=== PATIENT | female | born 1955 | race Caucasian/White ===

== ENCOUNTER 2023-08-06 13:11 | Outpatient (AMB) | payer MEDICARE, SELFPAY ==
--- NOTE | 2023-08-06 12:33 | A.OFFPC_ITS ---
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 Accompanied by: Self / Same As Patient Allergies bee venom protein (honey bee) Allergy (Severe, Verified 08/06/23 13:26) Anaphylaxis piroxicam Adverse Reaction (Unknown, Verified 08/06/23 13:26) Itching Medication List - Last Reconciled 08/06/23 by Marie Zapata MD apixaban (Eliquis) 5 mg PO BID celecoxib 200 mg PO DAILY epinephrine mL IM lisinopril 20 mg PO DAILY loratadine 10 mg PO DAILY metoprolol succinate ER 25 mg PO DAILY Tobacco use date assessed: 08/06/23 Fall risk assessment: No Falls in past year Last assessed Fall Risk: 08/06/23 Dental Screening Dental Screen Date: 08/06/23 Did you have a dental visit in the last 12 months?: No Did you have a dental problem in the last 6 months where you did not have access to dental care?: No Was dental information given to patient?: Patient declined (False teeth) HPI HPI Comments History of Present Illness Details This is a 67 year old female with a past medical history of hypertension, atrial fibrillation, arthritis, bee allergy presenting for follow up CV: On metoprolol, lisinopril, eliquis. Has seen cardiology. Endorsed lightheadedness/dizziness-she underwent stress testing, loop monitor. sinus with pvcs and occasional atrial fibrillation. Msk: Stable on celebrex 200mg daily Colonoscopy 2018-10 year repeat recommended Mammo 02/23/2023-[facility] Medical History (Updated 08/06/23 @ 13:59 by Marie Zapata MD) Paroxysmal atrial fibrillation Hypertension Osteoarthritis Hyperlipidemia Severe obesity (BMI 35.0-39.9) with comorbidity Surgical History (Updated 08/06/23 @ 13:43 by Kat Haney CMA) History of cholecystectomy History of hysterectomy History of knee replacement procedure of right knee History of left knee replacement History of colonoscopy Social History (Updated 08/06/23 @ 13:25 by [facility]aney [facility] Household Members: None Housing: Apartment Are you a primary acute care assistant to a significant other at home: No Do you presently have visiting nurse or other home services: No 75 years or older and lives alone: No Alcohol intake: current Alcohol intake frequency: holidays/special occasions only Patient Tobacco Use Status: Former Tobacco user Tobacco use type: Cigarette Cigarette Packs Per Day: 0.5 Years Smoked: 20-25 e-Cigarette/Vaping Use: Never Used service: No Current occupational status: disabled Current occupation: [employer] Current occupational exposures/hazards: No Cognitive needs: No Hearing needs: No Vision needs: No Questionnaire PHQ-9 Over the last 2 weeks, how often have you been bothered by any of the following problems? 1. Little interest or pleasure in doing things: not at all 2. Feeling down, depressed, or hopeless: not at all 3. Trouble falling or staying asleep, or sleeping too much: not at all 4. Feeling tired or having little energy: not at all 5. Poor appetite or overeating: not at all 6. Feeling bad about yourself - or that you are a failure or have let yourself or your family down: not at all 7. Trouble concentrating on things, such as reading the newspaper or watching television: not at all 8. Moving or speaking so slowly that other people could have noticed. Or the opposite - being so fidgety or restless that you have been moving around a lot more than usual: not at all 9. Thoughts that you would be better off or of hurting yourself in some way: not at all Total score: 0 Depression Screening Interpretation: Negative Depression Screening Done: Yes 40025 - PHQ-9 Billing: Yes Source: Developed by Drs. Hubert Song, Zo Da Silva, Adrian Andrade and colleagues, with an educational sury from [employer]. Thrive Questionnaire Date Thrive assessed: 08/06/23 I am a: Patient What is your living situation today?: I have a steady place to live Within the past 12 months, did the food you bought not last and you didn't have the money to get more?: Never true Within the past 12 months, did you worry whether your food would run out before you got money to buy more?: Never true Do you have trouble paying for medicines?: No Do you have trouble getting transportation to medical appointments?: No Do you have trouble paying your heating and electricity bill?: No Do you have trouble taking care of your child, family member or friend?: No Do you have trouble with day-to-day activities such as bathing, preparing meals, shopping, managing finances, etc.?: No Are you currently unemployed and looking for a job?: No Are you interested in more education?: No Please select the resources that you would like help with: None Currently or been in a relationship where the following occur: no concerns reported THRIVE Score: 0 AUDIT C Alcohol Use Questionnaire (AUDIT-C) 1. How often do you have a drink containing alcohol?: Monthly or less 2. How many drinks containing alcohol do you have on a typical day when you are drinking?: 1 or 2 3. How often do you have six or more drinks on one occasion?: Never Total Score: 1 HALINA-7 AMB Questionnaire HALINA-7 Date HALINA - 7 assessed: 08/06/23 Feeling nervous, anxious, or on edge: 0 = Not at all Not being able to stop or control worryin = Not at all Worrying too much about different things: 0 = Not at all Trouble relaxin = Not at all Being so restless that it is hard to sit still: 0 = Not at all Becoming easily annoyed or irritable: 0 = Not at all Feeling afraid as if something awful might happen: 0 = Not at all Total HALINA-7 score (0-4 normal; 5-9 mild; 10-14 moderate; 15-21 severe): 0 Source: Developed by Drs. Hubert Song, Zo Da Silva, Adrian Andrade and colleagues, with an educational sury from [employer]. HALINA-7 Assessment Billing HALINA-7 Assessment Tool: HALINA-7 Assessment 76509 Review of Systems Const Details: ROS CONSTITUTIONAL: Denies weight loss, fever and chills. HEENT: Denies changes in vision and hearing. RESPIRATORY: Denies SOB and couh.? CV: Denies palpitations and CP GI: Denies abdominal pain, nausea, vomiting and diarrhea. : Denies dysuria and urinary frequency. MSK: Denies myalgia and joint pain. SKIN: Denies rash and pruritus. NEUROLOGICAL: Denies headache and syncope. PSYCHIATRIC: Denies recent changes in mood. Denies anxiety and depression. Physical exam (Primary Care) Vital Signs: Last Vital Signs Pulse 68 08/06/23 13:17 Resp 12 08/06/23 13:17 BP 148/80 H 08/06/23 13:17 Pulse Ox 98 08/06/23 13:17 Oxygen Delivery Method Room Air 08/06/23 13:17 BMI result Body Mass Index 40.4 Tobacco/Smoking Status: Tobacco use Status Tobacco use date assessed 08/06/23 08/06/23 13:32 Patient Tobacco Use Status Former Tobacco user 08/06/23 13:32 Tobacco use type Cigarette 08/06/23 13:32 e-Cigarette/Vaping Use Never Used 08/06/23 13:32 PHQ-9: PHQ-9 Score PHQ-9: Total score 0 08/06/23 13:37 Depression Screening Interpretation: Negative Thrive Assessment: Date of Thrive Assessment Date Thrive assessed 08/06/23 08/06/23 13:32 Currently or been in a relationship where the following occur: no concerns reported Const Other: PHYSICAL EXAM: GENERAL: Alert and oriented x 3. No acute distress. Well-nourished. EYES: EOMI. Anicteric. HENT: Moist mucous membranes. No scleral icterus. No cervical lymphadenopathy. LUNGS: Clear to auscultation bilaterally. No accessory muscle use. CARDIOVASCULAR: Regular rate and rhythm. No murmur. No JVD. ABDOMEN: Soft, non-tender and non-distended. No palpable masses. EXTREMITIES: No edema. Non-tender.?SKIN: No rashes or lesions. Warm. NEUROLOGIC: No focal neurological deficits. CN II-XII grossly intact, but not individually tested. PSYCHIATRIC: Cooperative. Appropriate mood and affect. Assessment and Plan Assessment & Plan (1) Paroxysmal atrial fibrillation: Comment: Sinus today. Paroxysmal. Rate controlled on BB. Continue eliquis Code(s): I48.0 - Paroxysmal atrial fibrillation (2) Hypertension: Comment: Controlled on current medications Code(s): I10 - Essential (primary) hypertension Qualifiers: Hypertension type: primary hypertension Qualified Code(s): I10 - Essential (primary) hypertension (3) Osteoarthritis: Comment: stable on celebrex. Aware of risk of GIB Code(s): M19.90 - Unspecified osteoarthritis, unspecified site Qualifiers: Osteoarthritis location: multiple joints Osteoarthritis type: primary Qualified Code(s): M15.9 - Polyosteoarthritis, unspecified (4) Hyperlipidemia: Code(s): E78.5 - Hyperlipidemia, unspecified Qualifiers: Hyperlipidemia type: mixed hyperlipidemia Qualified Code(s): E78.2 - Mixed hyperlipidemia (5) Severe obesity (BMI 35.0-39.9) with comorbidity: Comment: Discussed portion control/decreasing calories and exercising for at least 30 min five times per week Code(s): E66.01 - Morbid (severe) obesity due to excess calories (6) Follow-up exam: Code(s): Z09 - Encounter for follow-up examination after completed treatment for conditions other than malignant neoplasm Orders: Orders Comprehensive Met. Panel Today E78.5 - Hyperlipidemia, unspecified, I10 - Essential (primary) hypertension, I48.0 - Paroxysmal atrial fibrillation, M19.90 - Unspecified osteoarthritis, unspecified site Lipid Panel Today E78.5 - Hyperlipidemia, unspecified, I10 - Essential (primary) hypertension, I48.0 - Paroxysmal atrial fibrillation, M19.90 - Unspecified osteoarthritis, unspecified site Complete Blood Count Auto Diff Today E78.5 - Hyperlipidemia, unspecified, I10 - Essential (primary) hypertension, I48.0 - Paroxysmal atrial fibrillation TSH reflex Free T4 Today R94.6 - Abnormal results of thyroid function studies Medications: New apixaban (Eliquis) 5 mg PO BID 90 tabs 3RF celecoxib 200 mg PO DAILY 90 caps 3RF lisinopril 20 mg PO DAILY 90 days 90 tabs 3RF metoprolol succinate ER 25 mg PO DAILY 90 days 90 tabs 3RF Coding Level of Care Code Est Pt Level 5 (45472) Diagnoses Paroxysmal atrial fibrillation I48.0 Primary hypertension I10 Hypertension type: primary hypertension Primary osteoarthritis involving multiple joints M15.9 Osteoarthritis location: multiple joints Osteoarthritis type: primary Mixed hyperlipidemia E78.2 Hyperlipidemia type: mixed hyperlipidemia Severe obesity (BMI 35.0-39.9) with comorbidity E66.01 Follow-up exam Z09 Additional Codes HALINA-7 Assessment Billing - HALINA-7 Assessment Tool: HALINA-7 Assessment 08248 ([id number]) Time Spent (min) 48
[2023-08-06 13:17] VITALS: BP 148/80; PULSE 68; RESP 12; O2SAT 98; BMI 40.4
[2023-08-06 13:56] VITALS: BP 134/82
== END 2023-08-06 13:58 | disposition home or self-care (01) ==
PROVIDERS: PCP Internal Medicine; Visit Provider Internal Medicine
DX: I48.0 Paroxysmal atrial fibrillation (principal); E66.01 Morbid (severe) obesity due to excess calories; Z68.41 Body mass index [BMI] 40.0-44.9, adult; I10 Essential (primary) hypertension; Z09 Encounter for follow-up examination after completed treatment for conditions other than malignant neoplasm; M15.9 Polyosteoarthritis, unspecified; E78.2 Mixed hyperlipidemia
CPT/HCPCS: 99215

== ENCOUNTER 2023-08-07 07:39 | Outpatient (REF) | payer MEDICARE, SELFPAY ==
[2023-08-07 11:42] LABS: MANUAL DIFF FLAG NO
[2023-08-07 11:57] LABS: Basophils Percent Auto 0.3 % (0-2); Eosinophils Absolute Auto 0.1 X10*3/uL (0.0-0.4); Eosinophils Percent Auto 0.9 % (0-4); Hematocrit 42.6 % (37.0-47.0); Hemoglobin 13.4 g/dl (12.0-16.0); Imm Gran Abs Auto 0.01 X10*3/uL (0.00-0.03); Imm Gran Pct Auto 0.2 % (0.0-0.4); Lymphocytes Percent Auto 51.5 % (20-40); Mean Corpuscular HGB Conc 31.5 g/dl (31.0-35.0); Mean Corpuscular Hemoglobin 30.5 pg (27.0-33.0); Mean Platelet Volume 12.1 fL (9.4-12.3); Monocytes Absolute Auto 0.5 X10*3/uL (0.1-1.2); Monocytes Percent Auto 8.1 % (2-11); Neutrophils Absolute Auto 2.3 x10*3/uL (2.0-8.3); Platelet Count 198 X10*3/uL (160-400); Red Blood Count 4.39 X10*6/uL (4.20-5.50); Red Cell Distribution Width 12.9 % (11.0-16.0); White Blood Count 5.8 X10*3/uL (4.8-10.8)
[2023-08-07 12:36] LABS: Alanine Aminotransferase 18 U/L (0-31); Albumin Level 4.3 g/dL (3.5-5.0); Alkaline Phosphatase 119 U/L (39-117); Anion Gap 13 (12-20); Aspartate Amino Transferase 23 U/L (5-31); Bilirubin Total 1.2 mg/dL (0.0-1.0); Blood Urea Nitrogen 18 mg/dL (9-16); Calcium 10.4 mg/dL (8.4-10.2); Carbon Dioxide 29 mmol/L (22-29); Chloride 105 mmol/L (96-108); Cholesterol 202 mg/dL (<200); Estimated Glomerular Filt Rate > 60; Glucose Random 104 mg/dL (60-115); HDL Cholesterol 82 mg/dL (>40); LDL Cholesterol Calculated 102 mg/dL (<100); Potassium 3.9 mmol/L (3.3-5.1); Sodium 143 mmol/L (135-145); Total Protein 7.4 g/dL (6.5-8.0); Triglycerides 91 mg/dL (<150)
== END 2023-08-07 07:40 | disposition home or self-care (01) ==
LOC: HO.WFDLDS 07:39
PROVIDERS: Visit Provider Internal Medicine
DX: E78.5 Hyperlipidemia, unspecified (principal); I10 Essential (primary) hypertension; I48.0 Paroxysmal atrial fibrillation; R94.6 Abnormal results of thyroid function studies; M19.90 Unspecified osteoarthritis, unspecified site
CPT/HCPCS: 36415; 80053; 80061; 84443; 85025

== ENCOUNTER 2024-02-02 10:15 | Outpatient (AMB) | payer MEDICARE, SELFPAY ==
--- NOTE | 2024-02-02 10:31 | A.OFFPC_ITS ---
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 Patient tells me she has a health care proxy Memory 3/3 recall Independent in all ADLS except driving. She never got her license No recent falls. Not scared of falling. Not using alcohol HRA reviewed. No issues identified Care team reviewed: She is no longer seeing cardiology. She is UTD with dentist CV: On metoprolol, lisinopril, eliquis. Has seen cardiology. Endorsed lightheadedness/dizziness-she underwent stress testing, loop monitor. sinus with pvcs and occasional atrial fibrillation. Msk: Stable on celebrex 200mg daily Colonoscopy 2018-10 year repeat recommended Mammo 02/23/2023-[facility] CONSTITUTIONAL: Denies weight loss, fever and chills. HEENT: Denies changes in vision and hearing. RESPIRATORY: Denies SOB and cough. CV: Denies palpitations and CP GI: Denies abdominal pain, nausea, vomiting and diarrhea. : Denies dysuria and urinary frequency. MSK: Denies new myalgia and joint pain. SKIN: Denies rash and pruritus. NEUROLOGICAL: Denies headache PSYCHIATRIC: Denies recent changes in mood. PHYSICAL EXAM: GENERAL: Alert and oriented x 3. NAD EYES: EOMI. Anicteric. HENT: Moist mucous membranes. No scleral icterus. No cervical lymphadenopathy. LUNGS: Clear to auscultation bilaterally. CARDIOVASCULAR: Regular rate and rhythm ABDOMEN: Soft, non-tender +bs EXTREMITIES: No edema. Non-tender. SKIN: No rashes or lesions. Warm. NEUROLOGIC: No focal neurological deficits. CN II-XII grossly intact PSYCHIATRIC: Cooperative. Appropriate mood and affect [facility] Medical History Paroxysmal atrial fibrillation Hypertension Osteoarthritis Hyperlipidemia Severe obesity (BMI 35.0-39.9) with comorbidity Surgical History History of cholecystectomy History of hysterectomy History of knee replacement procedure of right knee History of left knee replacement History of colonoscopy Social History Household Members: None Housing: Apartment Are you a primary manager care management to a significant other at home: No Do you presently have visiting nurse or other home services: No 75 years or older and lives alone: No Alcohol intake: current Alcohol intake frequency: holidays/special occasions only Patient Tobacco Use Status: Former Tobacco user Tobacco use type: Cigarette Cigarette Packs Per Day: 0.5 Years Smoked: 20-25 e-Cigarette/Vaping Use: Never Used service: No Current occupational status: disabled Current occupation: [employer]SI Current occupational exposures/hazards: No Cognitive needs: No Hearing needs: No Vision needs: No Questionnaire PHQ-9 Over the last 2 weeks, how often have you been bothered by any of the following problems? 1. Little interest or pleasure in doing things: not at all 2. Feeling down, depressed, or hopeless: not at all 3. Trouble falling or staying asleep, or sleeping too much: not at all 4. Feeling tired or having little energy: not at all 5. Poor appetite or overeating: not at all 6. Feeling bad about yourself - or that you are a failure or have let yourself or your family down: not at all 7. Trouble concentrating on things, such as reading the newspaper or watching television: not at all 8. Moving or speaking so slowly that other people could have noticed. Or the opposite - being so fidgety or restless that you have been moving around a lot more than usual: not at all 9. Thoughts that you would be better off or of hurting yourself in some way: not at all Total score: 0 Depression Screening Interpretation: Negative (neg) Depression Screening Done: Yes 65033 - PHQ-9 Billing: Yes Source: Developed by Drs. Hubert Song, Adrian Pino and colleagues, with an educational sury from [email or web address] Thrive Questionnaire Date Thrive assessed: 02/02/24 I am a: Patient What is your living situation today?: I have a steady place to live Within the past 12 months, did the food you bought not last and you didn't have the money to get more?: Never true Within the past 12 months, did you worry whether your food would run out before you got money to buy more?: Never true Do you have trouble paying for medicines?: No Do you have trouble getting transportation to medical appointments?: No Do you have trouble paying your heating and electricity bill?: No Do you have trouble taking care of your child, family member or friend?: No Do you have trouble with day-to-day activities such as bathing, preparing meals, shopping, managing finances, etc.?: No Are you currently unemployed and looking for a job?: No Are you interested in more education?: No Please select the resources that you would like help with: None Currently or been in a relationship where the following occur: No concerns reported THRIVE Score: 0 AUDIT C Alcohol Use Questionnaire (AUDIT-C) 1. How often do you have a drink containing alcohol?: Monthly or less 2. How many drinks containing alcohol do you have on a typical day when you are drinking?: 1 or 2 3. How often do you have six or more drinks on one occasion?: Less than monthly Total Score: 2 HALINA-7 AMB Questionnaire HALINA-7 Date HALINA - 7 assessed: 02/02/24 Feeling nervous, anxious, or on edge: 0 = Not at all Not being able to stop or control worryin = Not at all Worrying too much about different things: 0 = Not at all Trouble relaxin = Not at all Being so restless that it is hard to sit still: 0 = Not at all Becoming easily annoyed or irritable: 0 = Not at all Feeling afraid as if something awful might happen: 0 = Not at all Total HALINA-7 score (0-4 normal; 5-9 mild; 10-14 moderate; 15-21 severe): 0 Source: Developed by Zo Pantoja Avinash, Adrian Andrade and colleagues, with an educational sury from [email or web address] HALINA-7 Assessment Billing HALINA-7 Assessment Tool: HALINA-7 Assessment 40983 Physical exam (Primary Care) Vital Signs: Last Vital Signs Pulse 66 02/02/24 10:33 BP 118/74 02/02/24 10:33 Pulse Ox 97 02/02/24 10:33 Oxygen Delivery Method Room Air 02/02/24 10:33 BMI result Body Mass Index 41.3 Tobacco/Smoking Status: Tobacco use Status Tobacco use date assessed 08/06/23 02/02/24 10:38 Patient Tobacco Use Status Former Tobacco user 02/02/24 10:38 Tobacco use type Cigarette 02/02/24 10:38 e-Cigarette/Vaping Use Never Used 02/02/24 10:38 PHQ-9: PHQ-9 Score PHQ-9: Total score 0 02/02/24 11:03 Depression Screening Interpretation: Negative (neg) Thrive Assessment: Date of Thrive Assessment Date Thrive assessed 02/02/24 02/02/24 10:41 Currently or been in a relationship where the following occur: No concerns reported Coding Level of Care Code Est Pt Level 3 (81810) Diagnoses Encounter for annual wellness visit (AWV) in Medicare patient Z00.00 Paroxysmal atrial fibrillation I48.0 Severe obesity (BMI 35.0-39.9) with comorbidity E66.01 Additional Codes HALINA-7 Assessment Billing - HALINA-7 Assessment Tool: HALINA-7 Assessment 70409 ([id number]) Comment [id number] Assessment & Plan Assessment & Plan (1) Encounter for annual wellness visit (AWV) in Medicare patient: Code(s): Z00.00 - Encounter for general adult medical examination without abnormal findings Category: Medical Plan: see HPI (2) Paroxysmal atrial fibrillation: Code(s): I48.0 - Paroxysmal atrial fibrillation Category: Medical Plan: Sinus today. Paroxysmal. Rate controlled on BB. Continue eliquis (3) Severe obesity (BMI 35.0-39.9) with comorbidity: Code(s): E66.01 - Morbid (severe) obesity due to excess calories Category: Medical Plan: Discussed portion control/decreasing calories and exercising for at least 30 min five times per week Orders: Orders Comprehensive Met. Panel 6 Months E78.2 - Mixed hyperlipidemia, I10 - Essential (primary) hypertension Lipid Panel 6 Months E78.2 - Mixed hyperlipidemia, I10 - Essential (primary) hypertension Hemoglobin A1c 6 Months E78.2 - Mixed hyperlipidemia, I10 - Essential (primary) hypertension MM screening mammo BI Today Z12.31 - Encounter for screening mammogram for malignant neoplasm of breast UA CC w/rflx Micro + Cult Today I10 - Essential (primary) hypertension Medications: New furosemide 20 mg PO DAILY 90 tabs 3RF lisinopril 5 mg PO DAILY 90 tabs 3RF Discontinued lisinopril Discontinued Reason: Doctor's Order 20 mg PO DAILY 90 days 90 tabs 3RF
[2024-02-02 10:33] VITALS: BP 118/74; PULSE 66; O2SAT 97; BMI 41.3
== END 2024-02-02 11:12 | disposition home or self-care (01) ==
PROVIDERS: PCP Internal Medicine; Visit Provider Internal Medicine
DX: Z00.00 Encounter for general adult medical examination without abnormal findings (principal); I48.0 Paroxysmal atrial fibrillation; E66.01 Morbid (severe) obesity due to excess calories; Z68.41 Body mass index [BMI] 40.0-44.9, adult

== ENCOUNTER → 2024-02-02 10:15 | Outpatient (BNVA) | payer MEDICARE, SELFPAY | PROVIDERS: PCP Internal Medicine; Visit Provider Internal Medicine ==

== ENCOUNTER 2024-02-02 10:20 | Outpatient (REF) | payer MEDICARE, SELFPAY ==
[2024-02-02 14:49] LABS: Baso%MD 0.3 %; Hematocrit 37.9 % (37.0-47.0); Hemoglobin 12.7 g/dl (12.0-16.0); IG%MD 0.1 %; Lymph%MD 38.1 %; Mean Corpuscular HGB Conc 33.5 g/dl (31.0-35.0); Mean Corpuscular Hemoglobin 31.7 pg (27.0-33.0); Mean Corpuscular Volume 94.5 fL (80.0-98.0); Mean Platelet Volume 12.2 fL (9.4-12.3); Mono%MD 7.7 %; Neut%MD 52.8 %; Platelet Count 192 X10*3/uL (160-400); Red Blood Count 4.01 X10*6/uL (4.20-5.50); Red Cell Distribution Width 12.8 % (11.0-16.0); White Blood Count 7.1 X10*3/uL (4.8-10.8)
[2024-02-02 22:23] LABS: Lymphocytes Absolute Manual 2.4 X10*3/uL (1.2-4.9); Lymphocytes Percent Manual 34 % (20-40); Monocytes Absolute Manual 0.5 X10*3/uL (0.1-1.2); Monocytes Percent Manual 7 % (2-11); Neutrophils Percent Manual 59 % (45-73)
[2024-02-02 22:27] LABS: Platelet Estimate NORMAL (NORMAL); Platelet Morphology Comment NORMAL; RBC Morphology NORMAL
[2024-02-02 22:30] LABS: Band Neutrophils Percent 0 % (3-5); Neutrophils Absolute Manual 4.2 X10*3/uL (2.0-8.3)
== END 2024-02-02 10:21 | disposition home or self-care (01) ==
LOC: HO.WFDLDS 10:20
PROVIDERS: Visit Provider Internal Medicine
DX: Z00.00 Encounter for general adult medical examination without abnormal findings (principal); I48.0 Paroxysmal atrial fibrillation; E66.01 Morbid (severe) obesity due to excess calories; Z68.41 Body mass index [BMI] 40.0-44.9, adult; E78.2 Mixed hyperlipidemia; I10 Essential (primary) hypertension; Z79.01 Long term (current) use of anticoagulants
CPT/HCPCS: 85007; 85027; 96127; 99212

== ENCOUNTER 2024-07-29 10:00 | Outpatient (REF) | payer MEDICARE, SELFPAY ==
[2024-07-29 11:59] LABS: Estimated Average Glucose 111 mg/dL; Hemoglobin A1C 136.7956 umol/L; Hemoglobin A1c % 5.5 % (<6.0); Total Hemoglobin (HGBA1C) 3697.4269 umol/L
[2024-07-29 12:01] LABS: Appearance Urine Cloudy; Color Urine Dark Yellow; Glucose Urine UA Negative (Negative); Leukocyte Esterase Urine Moderate (2+) (Negative); Nitrite Urine Negative (Negative); PH 5.5 (5.0-9.0); Specific Gravity - Urine 1.025 (1.005-1.025); UMIC TRIGGER UACC YES; Urine Blood Trace (Negative); Urine Ketones Trace mg/dL (Negative); Urine Protein Negative (Neg-Trace)
[2024-07-29 12:12] LABS: Alanine Aminotransferase 25 U/L (0-31); Albumin Level 4.3 g/dL (3.5-5.0); Alkaline Phosphatase 83 U/L (39-117); Anion Gap 13 (12-20); Aspartate Amino Transferase 35 U/L (5-31); Bilirubin Total 1.2 mg/dL (0.0-1.0); Blood Urea Nitrogen 11 mg/dL (9-16); Calcium 10.2 mg/dL (8.4-10.2); Carbon Dioxide 30 mmol/L (22-29); Chloride 104 mmol/L (96-108); Cholesterol 187 mg/dL (<200); Estimated Glomerular Filt Rate > 60; Glucose Random 108 mg/dL (60-115); HDL Cholesterol 76 mg/dL (>40); LDL Cholesterol Calculated 82 mg/dL (<100); Potassium 4.2 mmol/L (3.3-5.1); Sodium 143 mmol/L (135-145); Total Protein 7.4 g/dL (6.5-8.0); Triglycerides 149 mg/dL (<150)
[2024-07-29 12:38] LABS: Bacteria Urine 4+ (None Seen); Other Crystals Urine Present; RBC Urine 0-2 /HPF (0-2); Squamous Epithelial Cell Urine >20 /HPF (0-2); UACC Culture Trigger YES
== END 2024-07-29 10:01 | disposition home or self-care (01) ==
LOC: HO.WFDLDS 10:00
PROVIDERS: Visit Provider Internal Medicine
DX: I10 Essential (primary) hypertension (principal); E78.2 Mixed hyperlipidemia; Z13.1 Encounter for screening for diabetes mellitus; R82.90 Unspecified abnormal findings in urine
CPT/HCPCS: 36415; 80053; 80061; 81001; 81003; 83036; 87086

== ENCOUNTER 2024-08-15 08:47 | Outpatient (AMB) | payer MEDICARE, SELFPAY ==
--- NOTE | 2024-08-15 09:13 | MHC.PC.OV ---
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: No Allergies bee venom protein (honey bee) Allergy (Severe, Verified 08/15/24 09:17) Anaphylaxis piroxicam Adverse Reaction (Unknown, Verified 08/15/24 09:17) Itching Tobacco use date assessed: 08/15/24 Fall risk assessment: No Falls in past year Last assessed Fall Risk: 08/15/24 Dental Screening Dental Screen Date: 08/15/24 Did you have a dental visit in the last 12 months?: No Did you have a dental problem in the last 6 months where you did not have access to dental care?: No Was dental information given to patient?: Patient declined (Has false teeth) HPI HPI Comments History of Present Illness Details This is a 67 year old female with a past medical history of hypertension, atrial fibrillation, arthritis, bee allergy presenting for AWV CV: On metoprolol, lisinopril, eliquis, furosemide. Has seen cardiology, no longer following. Endorsed lightheadedness/dizziness-she underwent stress testing, loop monitor. sinus with pvcs and occasional atrial fibrillation. MSK: Stable on celebrex 200mg daily. She cut out sugar/carbs which has helped her joints. She has lost 3 pounds but despite walking and changing diet she is having difficulty losing any more weight. Colonoscopy 2019-10 year repeat recommended Mammo 02/23/2023-[facility], says UTD 2023 ROS CONSTITUTIONAL: Denies weight loss, fever and chills. HEENT: Denies changes in vision and hearing. RESPIRATORY: Denies SOB and cough. CV: Denies palpitations and CP GI: Denies abdominal pain, nausea, vomiting and diarrhea. : Denies dysuria and urinary frequency. MSK: Denies new myalgia and joint pain. SKIN: Denies rash and pruritus. NEUROLOGICAL: Denies headache PSYCHIATRIC: Denies recent changes in mood. PHYSICAL EXAM: GENERAL: Alert and oriented x 3. NAD EYES: EOMI. Anicteric. HENT: Moist mucous membranes. No scleral icterus. No cervical lymphadenopathy. LUNGS: Clear to auscultation bilaterally. CARDIOVASCULAR: Regular rate and rhythm ABDOMEN: Soft, non-tender +bs EXTREMITIES: No edema. Non-tender. SKIN: No rashes or lesions. Warm. NEUROLOGIC: No focal neurological deficits. CN II-XII grossly intact PSYCHIATRIC: Cooperative. Appropriate mood and affect [facility] Medical History Paroxysmal atrial fibrillation Hypertension Osteoarthritis Hyperlipidemia Severe obesity (BMI 35.0-39.9) with comorbidity Surgical History History of cholecystectomy History of hysterectomy History of knee replacement procedure of right knee History of left knee replacement History of colonoscopy Social History Household Members: None Housing: Apartment Are you a primary care director rn to a significant other at home: No Do you presently have visiting nurse or other home services: No 75 years or older and lives alone: No Alcohol intake: current Alcohol intake frequency: holidays/special occasions only Patient Tobacco Use Status: Former Tobacco user Tobacco use type: Cigarette Cigarette Packs Per Day: 0.5 Years Smoked: 20-25 e-Cigarette/Vaping Use: Never Used service: No Current occupational status: disabled Current occupation: [employer] Current occupational exposures/hazards: No Cognitive needs: No Hearing needs: No Vision needs: No Questionnaire PHQ-9 Over the last 2 weeks, how often have you been bothered by any of the following problems? 1. Little interest or pleasure in doing things: not at all 2. Feeling down, depressed, or hopeless: not at all 3. Trouble falling or staying asleep, or sleeping too much: not at all 4. Feeling tired or having little energy: not at all 5. Poor appetite or overeating: not at all 6. Feeling bad about yourself - or that you are a failure or have let yourself or your family down: not at all 7. Trouble concentrating on things, such as reading the newspaper or watching television: not at all 8. Moving or speaking so slowly that other people could have noticed. Or the opposite - being so fidgety or restless that you have been moving around a lot more than usual: not at all 9. Thoughts that you would be better off or of hurting yourself in some way: not at all Total score: 0 Depression Screening Interpretation: Negative Depression Screening Done: Yes 78281 - PHQ-9 Billing: Yes Source: Developed by Drs. Hubert Song, Adrian Pino and colleagues, with an educational sury from [employer]. Thrive Questionnaire Date Thrive assessed: 08/15/24 I am a: Patient What is your living situation today?: I have a steady place to live Within the past 12 months, did the food you bought not last and you didn't have the money to get more?: Never true Within the past 12 months, did you worry whether your food would run out before you got money to buy more?: Never true Do you have trouble paying for medicines?: No Do you have trouble getting transportation to medical appointments?: No Do you have trouble paying your heating and electricity bill?: No Do you have trouble taking care of your child, family member or friend?: No Do you have trouble with day-to-day activities such as bathing, preparing meals, shopping, managing finances, etc.?: No Are you currently unemployed and looking for a job?: No Are you interested in more education?: No Please select the resources that you would like help with: None Currently or been in a relationship where the following occur: No concerns reported THRIVE Score: 0 HALINA-7 AMB Questionnaire HALINA-7 Date HALINA - 7 assessed: 08/15/24 Feeling nervous, anxious, or on edge: 0 = Not at all Not being able to stop or control worryin = Not at all Worrying too much about different things: 0 = Not at all Trouble relaxin = Not at all Being so restless that it is hard to sit still: 0 = Not at all Becoming easily annoyed or irritable: 0 = Not at all Feeling afraid as if something awful might happen: 0 = Not at all Total HALINA-7 score (0-4 normal; 5-9 mild; 10-14 moderate; 15-21 severe): 0 Source: Developed by Drs. Hubert Song, Adrian Pino and colleagues, with an educational sury from [employer]. HALINA-7 Assessment Billing HALINA-7 Assessment Tool: HALINA-7 Assessment 27053 Physical exam (Primary Care) Vital Signs: Last Vital Signs Pulse 53 08/15/24 09:23 Resp 16 08/15/24 09:23 BP 136/88 08/15/24 09:23 Pulse Ox 98 08/15/24 09:23 Oxygen Delivery Method Room Air 08/15/24 09:23 BMI result Body Mass Index 40.8 Tobacco/Smoking Status: Tobacco use Status Tobacco use date assessed 08/15/24 08/15/24 09:19 Patient Tobacco Use Status Former Tobacco user 08/15/24 09:13 Tobacco use type Cigarette 08/15/24 09:13 e-Cigarette/Vaping Use Never Used 08/15/24 09:13 PHQ-9: PHQ-9 Score PHQ-9: Total score 0 08/15/24 10:35 Depression Screening Interpretation: Negative Thrive Assessment: Date of Thrive Assessment Date Thrive assessed 08/15/24 08/15/24 09:26 Currently or been in a relationship where the following occur: No concerns reported Coding Level of Care Code Est Pt Level 4 (00417) Complex EM visit Add On G2211 Diagnoses Class 3 severe obesity with serious comorbidity and body mass index (BMI) of 40.0 to 44.9 in adult, unspecified obesity type E66.813; E66.01; Z68.41 Obesity type: unspecified obesity type Obesity classification: adult class 3 (BMI >= 40) Serious obesity comorbidity presence: with serious comorbidity Body mass index: BMI 40.0-44.9 Paroxysmal atrial fibrillation I48.0 Primary osteoarthritis involving multiple joints M15.9 Osteoarthritis location: multiple joints Osteoarthritis type: primary Primary hypertension I10 Hypertension type: primary hypertension Additional Codes HALINA-7 Assessment Billing - HALINA-7 Assessment Tool: HALINA-7 Assessment [id number] ([id number]) PHQ-9 - 26236 - PHQ-9 Billing: Yes ([id number]) Assessment & Plan Assessment & Plan (1) Obesity: Code(s): E66.9 - Obesity, unspecified Category: Medical Qualifiers: Obesity type: unspecified obesity type Obesity classification: adult class 3 (BMI >= 40) Serious obesity comorbidity presence: with serious comorbidity Body mass index: BMI 40.0-44.9 Qualified Code(s): E66.813 - Obesity, class 3; E66.01 - Morbid (severe) obesity due to excess calories; Z68.41 - Body mass index [BMI] 40.0-44.9, adult (2) Paroxysmal atrial fibrillation: Code(s): I48.0 - Paroxysmal atrial fibrillation Category: Medical (3) Osteoarthritis: Comment: stable on celebrex. Aware of risk of GIB Code(s): M19.90 - Unspecified osteoarthritis, unspecified site Category: Medical Qualifiers: Osteoarthritis location: multiple joints Osteoarthritis type: primary Qualified Code(s): M15.9 - Polyosteoarthritis, unspecified (4) Hypertension: Comment: Controlled on current medications Code(s): I10 - Essential (primary) hypertension Category: Medical Qualifiers: Hypertension type: primary hypertension Qualified Code(s): I10 - Essential (primary) hypertension Plan Hypertension well controlled Obesity-minimal weight loss with dietary and lifestyle changes. GLP sent OA-stable Labs reviewed Orders: Orders Complete Blood Count Auto Diff Today E66.9 - Obesity, unspecified, E78.2 - Mixed hyperlipidemia, I10 - Essential (primary) hypertension, I48.0 - Paroxysmal atrial fibrillation, M15.9 - Polyosteoarthritis, unspecified Comprehensive Met. Panel Today E66.9 - Obesity, unspecified, E78.2 - Mixed hyperlipidemia, I10 - Essential (primary) hypertension, I48.0 - Paroxysmal atrial fibrillation, M15.9 - Polyosteoarthritis, unspecified TSH reflex Free T4 Today E66.9 - Obesity, unspecified, E78.2 - Mixed hyperlipidemia, I10 - Essential (primary) hypertension, I48.0 - Paroxysmal atrial fibrillation, M15.9 - Polyosteoarthritis, unspecified Lipid Panel Today E66.9 - Obesity, unspecified, E78.2 - Mixed hyperlipidemia, I10 - Essential (primary) hypertension, I48.0 - Paroxysmal atrial fibrillation, M15.9 - Polyosteoarthritis, unspecified Medications: New Rybelsus (semaglutide) 3 mg PO DAILY 30 days 30 tabs 0RF NS E66.9 - Obesity, unspecified, I10 - Essential (primary) hypertension epinephrine (EpiPen 2-Waldemar) 0.3 mg (0.3 mL) IM Q10M PRN 2 ea 3RF anaphylaxis loratadine (Allergy Relief (loratadine)) 10 mg PO DAILY 90 tabs 3RF Refilled lisinopril 5 mg PO DAILY 90 tabs 3RF furosemide 20 mg PO DAILY 90 tabs 3RF Eliquis (apixaban) 5 mg PO BID 180 tabs 3RF NS metoprolol succinate ER 25 mg PO DAILY 90 days 90 tabs 3RF celecoxib 200 mg PO DAILY 90 caps 3RF
[2024-08-15 09:23] VITALS: BP 136/88; PULSE 53; RESP 16; O2SAT 98; BMI 40.8
== END 2024-08-15 09:49 | disposition home or self-care (01) ==
LOC: HO.HMCFM 08:47
PROVIDERS: PCP Internal Medicine; Visit Provider Internal Medicine
DX: E66.813 Obesity, class 3 (principal); E66.01 Morbid (severe) obesity due to excess calories; Z68.41 Body mass index [BMI] 40.0-44.9, adult; I48.0 Paroxysmal atrial fibrillation; M15.9 Polyosteoarthritis, unspecified; I10 Essential (primary) hypertension

== ENCOUNTER → 2024-08-15 08:47 | Outpatient (BNVA) | payer MEDICARE, SELFPAY | PROVIDERS: PCP Internal Medicine; Visit Provider Internal Medicine | DX: I10 Essential (primary) hypertension (principal); I48.0 Paroxysmal atrial fibrillation; E66.813 Obesity, class 3; E66.01 Morbid (severe) obesity due to excess calories; M15.9 Polyosteoarthritis, unspecified; E78.2 Mixed hyperlipidemia; Z68.41 Body mass index [BMI] 40.0-44.9, adult | CPT/HCPCS: 96127; 99212 ==

== ENCOUNTER 2025-01-31 08:47 | Outpatient (REF) | payer MEDICARE, SELFPAY ==
[2025-01-31 11:27] LABS: MANUAL DIFF FLAG NO
[2025-01-31 11:39] LABS: Appearance Urine Clear; Glucose Urine UA Negative (Negative); PH 6.0 (5.0-9.0); Specific Gravity - Urine 1.015 (1.005-1.025); UMIC TRIGGER UACC YES
[2025-01-31 12:11] LABS: Hematocrit 43.1 % (37.0-47.0); Hemoglobin 14.3 g/dl (12.0-16.0); Imm Gran Abs Auto 0.01 X10*3/uL (0.00-0.03); Imm Gran Pct Auto 0.1 % (0.0-0.4); Lymphocytes Absolute Auto 3.2 X10*3/uL (1.2-4.9); Mean Corpuscular HGB Conc 33.2 g/dl (31.0-35.0); Mean Corpuscular Hemoglobin 31.6 pg (27.0-33.0); Mean Corpuscular Volume 95.4 fL (80.0-98.0); NRBC Abs Auto 0.000 X10*3/uL (0.0-0.012); NRBC Pct Auto 0.0 /100WBC (0.0-0.2); Platelet Count 189 X10*3/uL (160-400); Red Blood Count 4.52 X10*6/uL (4.20-5.50); White Blood Count 7.1 X10*3/uL (4.8-10.8)
[2025-01-31 12:30] LABS: Alanine Aminotransferase 19 U/L (0-31); Albumin Level 4.3 g/dL (3.5-5.0); Alkaline Phosphatase 64 U/L (39-117); Anion Gap 11 (12-20); Aspartate Amino Transferase 25 U/L (5-31); Blood Urea Nitrogen 14 mg/dL (9-16); Calcium 9.6 mg/dL (8.4-10.2); Carbon Dioxide 30 mmol/L (22-29); Chloride 104 mmol/L (96-108); Cholesterol 185 mg/dL (<200); Estimated Glomerular Filt Rate > 60; HDL Cholesterol 74 mg/dL (>40); Potassium 3.4 mmol/L (3.3-5.1); Sodium 142 mmol/L (135-145); Total Protein 7.2 g/dL (6.5-8.0); Triglycerides 126 mg/dL (<150)
== END 2025-01-31 08:48 | disposition home or self-care (01) ==
LOC: HO.WFDLDS 08:47
PROVIDERS: Visit Provider Internal Medicine
DX: E78.2 Mixed hyperlipidemia (principal); I10 Essential (primary) hypertension; M15.9 Polyosteoarthritis, unspecified; E66.9 Obesity, unspecified; I48.0 Paroxysmal atrial fibrillation
CPT/HCPCS: 36415; 80053; 80061; 81001; 84443; 85025

== ENCOUNTER 2025-02-06 09:01 | Outpatient (AMB) | payer MEDICARE, SELFPAY ==
--- NOTE | 2025-02-06 09:03 | A.OFFVIS_ITS ---
Intake Vital Signs 02/06/25 09:18 Height 5 ft 5 in Weight 242 lb BMI 40.3 BP 112/84 Blood Pressure Location Rt brachial Position Sitting Respiration 16 Pulse 68 Pulse Source Pulse Oximeter Temp 98.5 F Temp Source Oral Pulse Oximetry (%) 96 Oxygen Delivery Method Room Air Intake Visit Reasons: AWV Allergies bee venom protein (honey bee) Allergy (Severe, Verified 08/15/24 09:17) Anaphylaxis piroxicam Adverse Reaction (Unknown, Verified 08/15/24 09:17) Itching HPI HPI Comments History of Present Illness Details This is a 67 year old female with a past medical history of hypertension, atrial fibrillation, arthritis, bee allergy presenting for AWV CV: On metoprolol, lisinopril, eliquis, furosemide. Has seen cardiology in the past, no longer following. Previous stress testing-reassuring. loop monitor. sinus with pvcs and occasional atrial fibrillation-continues AC MSK: Stable on celebrex 200mg daily. She cut out sugar/carbs which has helped her joints. Impaired glucose with borderline prediabetic A1C Colonoscopy 2018-10 year repeat recommended Mammo 02/23/2023-[facility], says UTD 2023 Advance care planning (ACP)-Discussed. Patient tells me she has a health care proxy Memory 3/3 recall Independent in all ADLS except driving. She never got her license No recent falls. Not scared of falling. Not using alcohol HRA reviewed. No issues identified Care team reviewed: She is no longer seeing cardiology. She is UTD with dentist Patient got covid and flu shot last month (2024) ROS CONSTITUTIONAL: Denies weight loss, fever and chills. HEENT: Denies changes in vision and hearing. RESPIRATORY: Denies SOB and cough. CV: Denies palpitations and CP GI: Denies abdominal pain, nausea, vomiting and diarrhea. : Denies dysuria and urinary frequency. MSK: Denies new myalgia and joint pain. SKIN: Denies rash and pruritus. NEUROLOGICAL: Denies headache PSYCHIATRIC: Denies recent changes in mood. PHYSICAL EXAM: GENERAL: Alert and oriented x 3. NAD EYES: EOMI. Anicteric. HENT: Moist mucous membranes. No scleral icterus. No cervical lymphadenopathy. LUNGS: Clear to auscultation bilaterally. CARDIOVASCULAR: Regular rate and rhythm ABDOMEN: Soft, non-tender +bs EXTREMITIES: No edema. Non-tender. SKIN: No rashes or lesions. Warm. NEUROLOGIC: No focal neurological deficits. CN II-XII grossly intact PSYCHIATRIC: Cooperative. Appropriate mood and affect [facility] Medical History Paroxysmal atrial fibrillation Hypertension Osteoarthritis Hyperlipidemia Severe obesity (BMI 35.0-39.9) with comorbidity Surgical History History of cholecystectomy History of hysterectomy History of knee replacement procedure of right knee History of left knee replacement History of colonoscopy Social History Household Members: None Housing: Apartment Are you a primary residential caregiver to a significant other at home: No Do you presently have visiting nurse or other home services: No 75 years or older and lives alone: No Alcohol intake: current Alcohol intake frequency: holidays/special occasions only Patient Tobacco Use Status: Former Tobacco user Tobacco use type: Cigarette Cigarette Packs Per Day: 0.5 Years Smoked: 20-25 e-Cigarette/Vaping Use: Never Used service: No Current occupational status: disabled Current occupation: [employer] Current occupational exposures/hazards: No Cognitive needs: No Hearing needs: No Vision needs: No Questionnaire Medicare Wellness Checkup [age] 65-69 What gender do you identify with?: female During the past 4 weeks, has your physical & emotional health limited your social activities with family, friends, neighbors, or groups?: not at all During the past 4 weeks, how much bodily pain have you generally had?: very mild pain During the past 4 weeks, what was the hardest physical activity you could do for at least 2 minutes?: heavy Can you get to places out of walking distance without help? (For eg., can you travel alone on buses, taxis or drive your car?): Yes Can you go shopping for groceries or clothes without someone's help?: Yes Can you prepare your own meals?: Yes Can you do your housework without help?: Yes Because of any health problems, do you need the help of another person with your personal care needs such as eating, bathing, dressing or getting around the house?: No Can you handle your own money without help?: Yes During the past 4 weeks, how would you rate your health in general?: good During the past 4 weeks how have things been going for you?: very well; could hardly better Are you having difficulties driving your car?: not applicable, I don't use a car Do you always fasten your seat belt when you are in a car?: yes, usually During past 4 weeks, have you been bothered by the following: never: Falling or dizzy when standing up, Sexual problems?, Trouble eating well?, Teeth or denture problems?, Problems using the telephone? and Tiredness or fatigue? Have you fallen 2 or more times in the past year?: No Are you afraid of falling?: Yes Are you a smoker?: no (quit 6 years ago) During the past 4 weeks, how many drinks of wine, beer, or other alcoholic beverages did you have?: no alcohol at all Do you exercise for about 20 minutes 3 or more times a week?: yes, all the time Have you been given information to help with the following?: no: Hazards in your house that might hurt you? and no: Keeping track of your medications? How often do you have trouble taking medicines the way you have been told to take them?: I always take medicine as prescribed What is your race?: White Mini Mental State Exam (MMSE) Orientation What is the (year) (season) (date) (day) (month)?: year (2024), season (Fall), date (02/06/2025), day (Thursday) and month (January) Where are we (state) (county) (town or city) (hospital) (floor)?: state ([place]), county ([place]), town or city ([place]), hospital[place] and floor ([place]) Registration Name of 3 unrelated objects clearly and slowly, then ask patient to repeat all 3 of them. (1st repeat determines score. Make sure they can repeat all three): object 1 (Ball), object 2 (Flag) and object 3 (Tree) Attention & Calculation (CHOOSE ONE) Spell WORLD backwards (DLROW): 0 letters Recall Ask patient to repeat the 3 items from question #3.: object 1 (ball) and object 2 (flag) Language Show patient a wristwatch & ask what it is. Repeat for pencil.: pencil Ask the patient to repeat the phrase 'No ifs, ands, or buts' after you.: incorrect Print the sentence 'CLOSE YOUR EYES' on a piece. If patient actually closes eyes then score.: followed written direction Give patient a blank piece of paper & ask to write a sentence. Score if it contains a noun & verb.: sentence contains subject and verb Score Score: 18 Activity of Daily Living Bathing - sponge bath, tub bath or shower: receives no assistance (gets in/out by self, if usual bathing means Dressing - getting clothes from closets & drawers, including inner/outer garments & fasteners.: gets clothes & gets completely dressed without help Toileting - going to the 'toilet room' for urine/bowel elimination & cleaning self/arranging clothes: goes to toilet room, cleans self, arranges clothes without help Transfer: moves in & out of bed and chair without help (may use support object) Continence: controls urination/bowel movements completely by self Feeding: feeds self without help Total Score: 0 Information obtained from: patient Using telephone: independent Traveling: independent Shopping: independent Preparing meals: independent Housework: independent Taking medicine: independent Managing money: independent PHQ-9 Over the last 2 weeks, how often have you been bothered by any of the following problems? 1. Little interest or pleasure in doing things: not at all 2. Feeling down, depressed, or hopeless: not at all 3. Trouble falling or staying asleep, or sleeping too much: not at all 4. Feeling tired or having little energy: not at all 5. Poor appetite or overeating: not at all 6. Feeling bad about yourself - or that you are a failure or have let yourself or your family down: not at all 7. Trouble concentrating on things, such as reading the newspaper or watching television: not at all 8. Moving or speaking so slowly that other people could have noticed. Or the opposite - being so fidgety or restless that you have been moving around a lot more than usual: not at all 9. Thoughts that you would be better off or of hurting yourself in some way: not at all Total score: 0 Depression Screening Interpretation: Negative Depression Screening Done: Yes 76031 - PHQ-9 Billing: Yes Source: Developed by DrsDonovan Song, Zo Da Silva, Adrian Andrade and colleagues, with an educational sury from [employer]. Physical Exam Vital Signs: Last Vital Signs Temp 98.5 F 02/06/25 09:18 Pulse 68 02/06/25 09:18 Resp 16 02/06/25 09:18 BP 112/84 02/06/25 09:18 Pulse Ox 96 02/06/25 09:18 Oxygen Delivery Method Room Air 02/06/25 09:18 BMI result Body Mass Index 40.3 Assessment & Plan Assessment & Plan (1) Encounter for annual wellness visit (AWV) in Medicare patient: Code(s): Z00.00 - Encounter for general adult medical examination without abnormal findings (2) Paroxysmal atrial fibrillation: Code(s): I48.0 - Paroxysmal atrial fibrillation (3) Hypertension: Comment: Controlled on current medications Code(s): I10 - Essential (primary) hypertension Qualifiers: Hypertension type: primary hypertension Qualified Code(s): I10 - Essential (primary) hypertension (4) Hyperlipidemia: Code(s): E78.5 - Hyperlipidemia, unspecified Qualifiers: Hyperlipidemia type: mixed hyperlipidemia Qualified Code(s): E78.2 - Mixed hyperlipidemia Plan MWV-see HPI and forms Interval history reviewed Patient doing well. Med complaints OA is stable. Mammo ordered-she is moving to [place] for testing. previous at [facility] starting [facility] Orders: Orders Hemoglobin A1c 4 Months E78.2 - Mixed hyperlipidemia, I10 - Essential (primary) hypertension, I48.0 - Paroxysmal atrial fibrillation, R79.89 - Other specified abnormal findings of blood chemistry Lipid Panel 4 Months E78.2 - Mixed hyperlipidemia, I10 - Essential (primary) hypertension, I48.0 - Paroxysmal atrial fibrillation, R79.89 - Other specified abnormal findings of blood chemistry TSH reflex Free T4 4 Months E78.2 - Mixed hyperlipidemia, I10 - Essential (primary) hypertension, I48.0 - Paroxysmal atrial fibrillation, R79.89 - Other specified abnormal findings of blood chemistry MM tomosynthesis screening BI 1 Month Z12.31 - Encounter for screening mammogram for malignant neoplasm of breast Comprehensive Met. Panel 4 Months E78.2 - Mixed hyperlipidemia, I10 - Essential (primary) hypertension, I48.0 - Paroxysmal atrial fibrillation, R79.89 - Other specified abnormal findings of blood chemistry Complete Blood Count Auto Diff 4 Months E78.2 - Mixed hyperlipidemia, I10 - Essential (primary) hypertension, I48.0 - Paroxysmal atrial fibrillation, R79.89 - Other specified abnormal findings of blood chemistry Medications: Discontinued Rybelsus (semaglutide) Discontinued Reason: Doctor's Order 3 mg PO DAILY 30 days 30 tabs 0RF NS E66.9 - Obesity, unspecified, I10 - Essential (primary) hypertension Quality Reporting (2019) Fall Risk Screening ([facility] 139) Last assessed Fall Risk: 02/06/25 Fall risk assessment: No Falls in past year Depression/Bipolar (159/160/161/177) PHQ-9: Total score: 0 Coding Level of Care Code Medicare Subsequent (G0439) Diagnoses Encounter for annual wellness visit (AWV) in Medicare patient Z00.00 Paroxysmal atrial fibrillation I48.0 Primary hypertension I10 Hypertension type: primary hypertension Mixed hyperlipidemia E78.2 Hyperlipidemia type: mixed hyperlipidemia CPT Codes Advance Care Planning - Time spent: 1-15 minutes, not on file ([id number]) Additional Codes PHQ-9 - 85272 - PHQ-9 Billing: Yes ([id number]) Advance Care Planning Advance Care Planning discussion: Exists, not on file Date of discussion: 02/06/25 Forms completed: None Time spent: 1-15 minutes, not on file Actual minutes spent: 3 Did not discuss due to Cultural/Spiritual beliefs: No
[2025-02-06 09:18] VITALS: BP 112/84; PULSE 68; RESP 16; TEMP 36.9; O2SAT 96; BMI 40.3
== END 2025-02-06 09:37 | disposition home or self-care (01) ==
LOC: HO.HMCFM 09:02
PROVIDERS: PCP Internal Medicine; Visit Provider Internal Medicine
DX: Z00.00 Encounter for general adult medical examination without abnormal findings (principal); I48.0 Paroxysmal atrial fibrillation; I10 Essential (primary) hypertension; E78.2 Mixed hyperlipidemia

== ENCOUNTER → 2025-02-06 09:01 | Outpatient (BNVA) | payer MEDICARE, SELFPAY | PROVIDERS: PCP Internal Medicine; Visit Provider Internal Medicine | DX: Z00.00 Encounter for general adult medical examination without abnormal findings (principal); I48.0 Paroxysmal atrial fibrillation; I10 Essential (primary) hypertension; E78.2 Mixed hyperlipidemia; M19.90 Unspecified osteoarthritis, unspecified site; Z79.01 Long term (current) use of anticoagulants; Z79.899 Other long term (current) drug therapy; Z13.31 Encounter for screening for depression | CPT/HCPCS: 96127 ==